=== PATIENT | female | born 1995 | race Caucasian/White ===

== ENCOUNTER 2019-03-17 14:57 | Emergency (ER) | payer MEDICARE, OTHER ==
[~2019-03-17] VITALS: Ht 165.1 cm; Wt 59.9 kg
--- NOTE | 2019-03-17 14:59 | NUR ---
PT BIBA C/O FAINTING WHILE WALKING AT WORK. PT LETHARGIC, VSS, RESPIRATIONS EVEN AND UNLABORED ON ROOM AIR W/ NAD NOTED. PT CONNECTED TO THE MONITOR
[2019-03-17] MEDS ORDERED: IV NS 0.9% 1,000 ML BAG IV ONE ×2 (16:30)
--- NOTE | 2019-03-17 16:30 | NUR ---
BLOOD SENT TO LAB
[2019-03-17 16:37] LABS: BASOPHILS % (AUTO) 0.3 % (0.0-2.0); EOSINOPHILS % (AUTO) 0.9 % (0.0-6.0); HEMATOCRIT 42 % (33-45); HEMOGLOBIN 13.8 g/dL (11.5-14.8); LYMPHOCYTES # (AUTO) 1.1 /CMM (0.8-4.8); LYMPHOCYTES % (AUTO) 14.3 % (20.0-44.0); MEAN CORPUSCULAR HGB CONC 33 g/dl (31.0-36.0); MEAN CORPUSCULAR VOLUME 89 fL (82-100); MONOCYTES # (AUTO) 0.6 /CMM (0.1-1.30); MONOCYTES % (AUTO) 8.1 % (2.0-12.0); NEUTROPHILS % (AUTO) 76.4 % (43.0-81.0); PLATELET COUNT (AUTO) 263 /CMM (150-450); WHITE BLOOD COUNT (AUTO) 7.9 K/uL (4.3-11.0)
[2019-03-17 16:49] LABS: ALCOHOL, BLOOD < 3 mg/dL (0-0); CALCIUM, SERUM 9.7 mg/dL (8.5-10.1); CARBON DIOXIDE 30 mmol/L (21-32); CHLORIDE 103 mmol/L (98-107); CREATININE 0.9 mg/dL (0.6-1.3); GLUCOSE 138 mg/dL (74-106); POTASSIUM 4.3 mmol/L (3.5-5.1); SODIUM SERUM 138 mmol/L (136-145); UREA NITROGEN, BLOOD 17 mg/dL (7-18)
--- NOTE | 2019-03-17 17:00 | NUR ---
URINE COLLECTED AND SENT TO LAB
[2019-03-17 17:24] LABS: APPEARANCE,URINE Clear (CLEAR); BILIRUBIN,URINE Negative (NEGATIVE); BLOOD, URINE Negative Ery/uL (NEGATIVE); COLOR,URINE Yellow (YELLOW); KETONES,URINE Negative (NEGATIVE); LEUKOCYTE ESTERASE ,URINE Negative (NEGATIVE); NITRITE, URINE Negative (NEGATIVE); PH,URINE 6.5 (5.0-8.0); PROTEIN,URINE Negative (NEGATIVE); UGLUCOSE Negative (NEGATIVE); UROBILINOGEN,URINE 0.2 EU/dL (0.2)
[2019-03-17 17:55] LABS: THYROID STIMULATING HORMONE 2.664 uIU/mL (0.358-3.74)
[2019-03-17 19:07] VITALS: BP 117/84
--- NOTE | 2019-03-17 19:07 | NUR ---
Patient discharged to home in stable condition. Written and verbal after care instructions given. Patient verbalizes understanding of instruction.
== END 2019-03-17 19:09 | disposition home or self-care (01) ==
LOC: ER 15:02
DX: R55 Syncope and collapse (principal); F84.0 Autistic disorder
CPT/HCPCS: 36415; 70450; 71045; 80048; 80307; 81001; 84443; 84484; 84703; 85025; 85730; 93005; 96360; 96361; 99284; J7030; 81000-TC; G0480